=== PATIENT | female | born 1960 | race Caucasian/White ===

== ENCOUNTER → 2016-02-29 | Outpatient (CLI) | payer BC ==
[~2016-02-29] MED LIST: ALBUTEROL INHALER; ALBUTEROL2 MG/5 ML PO; ATROVENT I0.2 MG/1 M IH; IPRATROPIUM BRO15 ML NS; ZOLOFT 100MG100 MG PO; flovent inhaler
== END ==
LOC: MC.RAD 11:20
DX: Z12.31 Encounter for screening mammogram for malignant neoplasm of breast (principal)